=== PATIENT | female | born 1965 | race Caucasian/White ===

== ENCOUNTER 2016-08-24 07:25 | Day surgery (SDC) | payer OTHER ==
[2016-08-24] MEDS ORDERED: LIDOCAINE 2% MDV (20MG/ML) 20ML VIAL IV ONE (14:00)
[2016-08-24] MEDS ORDERED: PROPOFOL 10 MG/ML VIAL IV ONE (14:00)
[2016-08-24] MEDS ORDERED: MIDAZOLAM HCL 2MG/2ML VIAL IV ONE (14:00)
--- NOTE | 2016-08-29 17:30 | Operative Note ---
DATE OF SURGERY: 08/24/2016 OPERATION: Screening COLONOSCOPY. PREOPERATIVE DIAGNOSIS: High risk, family history of colon polyps in first- degree relative. POSTOPERATIVE DIAGNOSIS: Normal exam. PREPARATION QUALITY: Good. ESTIMATED BLOOD LOSS: None. SPECIMENS: None. COMPLICATIONS: None apparent. PROCEDURE: After informed consent was obtained from the patient, she was placed in the left lateral decubitus position in the endoscopy suite, sedated and monitored by the department of anesthesia. Once sedated, a digital rectal exam was performed which was unremarkable. A well-lubricated [id number] colonoscope was inserted into the rectum and advanced to the cecum. Preparation quality was good. The ileocecal valve, appendiceal orifice, ascending colon, transverse colon, descending colon, sigmoid colon, and rectum were unremarkable. No polyps , mass lesions, or diverticula were seen. Forward and J-turn views of the rectum and anorectum were unremarkable. The endoscope was straightened, the rectal ampulla deflated, and the endoscope was removed. RECOMMENDATIONS: I would suggest the patient resume her medications and diet. I would recommend a repeat exam in 5 years based on her family history. As always, thank you for allowing me to participate in the healthcare of your patients. CC: Dr. Tony LALA
== END 2016-08-24 09:23 | disposition home or self-care (01) ==
LOC: HOP 07:25
PROVIDERS: ATTEND Internal Medicine Gastroenterology
DX: Z12.11 Encounter for screening for malignant neoplasm of colon (principal); Z83.71 Family history of colonic polyps; E11.9 Type 2 diabetes mellitus without complications; Z79.84 Long term (current) use of oral hypoglycemic drugs
CPT/HCPCS: 00810; G0105; 81025

== ENCOUNTER 2017-10-12 09:00 | Inpatient (IN) | payer OTHER ==
[2017-10-23] MEDS ORDERED: METOCLOPRAMIDE 10 MG TABLET PO ONE (06:00)
[2017-10-23] MEDS ORDERED: FAMOTIDINE 20MG TABLET PO ONE (06:00)
[2017-10-23] MEDS ORDERED: MECLIZINE 25 MG TABLET PO ONE (06:00)
[2017-10-23] MEDS ORDERED: CEFAZOLIN 2 Gram 2 GM/50 ML BAG IVPB ONE (06:00)
[2017-10-23] MEDS ORDERED: ACETAMINOPHEN 1,000 MG/100 ML BTL IV ONE (06:00)
[2017-10-23] MEDS ORDERED: DIPHENHYDRAMINE HCL 25 MG CAPSULE PO PRN (12:15)
[2017-10-23] MEDS ORDERED: ONDANSETRON HCL IV 4 MG/2 ML VIAL IVP PRN (12:15)
[2017-10-23] MEDS ORDERED: MAGNESIUM HYDROXIDE 30 ML UDC PO PRN (12:15)
[2017-10-23] MEDS ORDERED: TRAMADOL HCL 50 MG TABLET PO PRN ×2 (12:15)
[2017-10-23] MEDS ORDERED: OXYCODONE HCL 5 MG TABLET PO PRN (12:15)
[2017-10-23] MEDS ORDERED: METOCLOPRAMIDE HCL 10 MG/2 ML VIAL IVP PRN (12:15)
[2017-10-23] MEDS ORDERED: NALOXONE 0.4 MG/1 ML VIAL IVP PRN (12:15)
[2017-10-23] MEDS ORDERED: SENNOSIDES/DOCUSATE SODIUM UD CAPSULE PO PRN (12:15)
[2017-10-23] MEDS ORDERED: AL HYDROX/MAG HYDROX 30ML UD PO PRN (12:15)
[2017-10-23] MEDS ORDERED: ZOLPIDEM TARTRATE 5 MG TABLET PO PRN (12:15)
[2017-10-23] MEDS: RINGERS SOLUTION,LACTATED 1,000 ML IV SCH (12:48)
[2017-10-23] MEDS: HYDROMORPHONE HCL 2 MG/ML VIAL IV PRN ×2 (13:18→13:39)
[2017-10-23] MEDS ORDERED: PROPOFOL 10 MG/ML VIAL IV ONE (14:00)
[2017-10-23] MEDS ORDERED: MIDAZOLAM HCL 2MG/2ML VIAL IV ONE (14:00)
[2017-10-23] MEDS ORDERED: *PACU ONLY* KETAMINE HCL 10 MG/ML (20ML) VIAL IV ONE (14:00)
[2017-10-23] MEDS ORDERED: TRANEXAMIC ACID 1,000 MG in 0.9 % SODIUM CHLORIDE 100ML 100 ML IVPB ONE (15:00)
--- NOTE | 2017-10-23 15:50 | Rehab Evaluation ---
Patient Information - Patient Information Diagnosis: L knee OA Ordered Treatment: PT Evaluate and Treat Status: Initial Evaluation Surgery: Yes (L TKA) Date of Surgery: 10/23/17 History: Detail Past Medical/Surgical Hx: PAST MEDICAL/SURGICAL HISTORY Past Surgical History CSECTION X3 CHOLECYSTECTOMY TONSILLECTOMY PMH - Respiratory Hx Respiratory Disorders Yes Comment: small "bronchial tube" left lung PMH - Cardiovascular Hx Cardiovascular Disorders Yes Exercise Tolerance Good PMH - Neuro Hx Neurological Disorders No PMH - GI Hx Gastrointestinal Disorders No PMH - Hx Genitourinary Disorders No Hx Age of Menopause 49 Comment: MENOPAUSE STARTED IN MARCH PMH - Endocrine Hx Endocrine Disorders Yes Hx Diabetes Yes Hx of NIDDM Yes Comment: A1C 7.3 recently went back on Victoza blood sugars 160 range PMH - Musculoskeletal Hx Musculoskeletal Disorders Yes Hx Arthritis Yes: KNEES PMH - Psych Hx Psychiatric Problems No PMH - Hematology/Oncology Hx Hematology/Oncology No Disorders Premorbid Status: Detail (The patient was independent with all mobility prior to surgery.) Social History: Detail (The patient lives with spouse in a 2 story home with 13 steps to her bedroom. The patient's house has 3 steps at the enterance with hand rail on the right side. The patient's bathroom is equipped with walk in shower with a seat and a standard toilet with a riser seat.) Precautions: [place], Fall, Other (WBAT on the L LE) - Time With Patient Total Time Spent With Patient (Min): 30 Treatment Procedures: Detail (Initial Eval, gait training.) Subjective Information - Subjective Information Per Patient (The patient had minimal complaints of pain. The patient was light headed when ambulating to bathroom.) Objective Data - Mental Status Patient Orientation: Oriented x3 - Visual Perception Appears within normal limits for therapeutic activities - ROM Not within normal limits (The patient's L knee AROM was limited s/p surgery. All other LE AROM was WNL.) - Strength/Tone Not within normal limits (The patient's L LE strength was not tested secondary to s/p however it was functional. The patient was able to complete SLR. R LE strength was4+to 5/5.) - Bed Mobility Independent (The patient was independent with supine to and from sit.) - Transfers Independent (Independent sit to stand .) - Balance Balance Sitting: Good Balance Standing: Good - Sensation Intact - Gait Detail (The patient ambulated to and from bathroom WBAT on the L LE with supervision of 2 for safety ( a distance of 13 feet x 2) . When approaching the toilet the patient c/o lightheadedness. The patient turned to sit on toilet and listed to the left with brief loss of consciousness ( responded to name in 1- 2 seconds) Patient was supported by nursing staff and PT. After sitting on toilet for a a few minutes the patient was able to ambulate back to her bed. Nursing staff was present throughout incident.) Therapy Assessment - Therapy Assessment Detail (The patient did well with bed mobility , transfers and ambulation with a brief incident of fainting while on toilet. Feel the patient will progress well.) Problem List - Problem List Physical Therapy Problem List: Detail (1) Decreased L knee AROM and L LE strength 2) Nonambulatory on stairs) Goals - Goals Physical Therapy Goals: 1) Independent with HEP of TKA exercises. 2) The patient will ambulate independently with assistive divice WBAT on the L LE household distances and on a flight of stairs using proper technique with supervision for safety Prognosis - Prognosis Good Plan - Plan Physical Therapy Plan: PT 1 to 2 times until all inpatient PT goals have been met for gait training on levles and stairs and instruction in HEP.
[2017-10-23] MEDS ORDERED: FONDAPARINUX 2.5 MG/0.5 ML SYR SQ SCH (16:00)
[2017-10-23] MEDS: ACETAMINOPHEN 1,000 MG/100 ML BTL IV SCH ×2 (16:01→21:17)
[2017-10-23] MEDS ORDERED: BUPIVACAINE 0.25% W/EPI MPF 30ML VIAL IVP ONE (16:05)
[2017-10-23] MEDS ORDERED: BUPIVACAINE LIPOSOME 266MG/20ML VIAL IV ONE (16:05)
[2017-10-23] MEDS ORDERED: TRANEXAMIC ACID 1,000 MG/10 ML ML IV ONE (16:05)
[2017-10-23] MEDS: CEFAZOLIN 1G VIAL IVP SCH (17:02)
[2017-10-23] MEDS ORDERED: CEFAZOLIN 2 Gram 2 GM/50 ML BAG IVPB SCH (17:30)
[2017-10-23] MEDS: OXYCODONE HCL 5 MG TABLET PO PRN (17:54)
[2017-10-23] MEDS: ASPIRIN 325 MG TAB ENTERIC-COATED PO SCH (21:17)
[2017-10-24] MEDS: OXYCODONE HCL 5 MG TABLET PO PRN ×3 (00:37→09:22)
[2017-10-24] MEDS: CEFAZOLIN 1G VIAL IVP SCH ×2 (00:38→08:34)
[2017-10-24] MEDS: ACETAMINOPHEN 1,000 MG/100 ML BTL IV SCH (03:31)
[2017-10-24] MEDS: RINGERS SOLUTION,LACTATED 1,000 ML IV SCH (04:24)
[2017-10-24 06:30] LABS: HEMATOCRIT 37.2 % (35.0-47.0); HEMOGLOBIN 12.4 gm/dl (11.6-16.0); MEAN CELL VOLUME 91.9 fl (81-97); MEAN CORPUSCULAR HEMOGLOBIN 30.6 pg (27-33); MEAN CORPUSCULAR HGB CONC 33.3 g/dl (32-36); MEAN PLATELET VOLUME 11.2 fl (7.4-10.4); PLATELET COUNT 198 K/uL (130-400); RED BLOOD COUNT 4.05 M/uL (3.80-5.40); RED CELL DISTRIBUTION WIDTH 12.4 % (11.5-14.5); WHITE BLOOD COUNT W/O DIFF 10.5 K/uL (4.2-12.2)
[2017-10-24 06:39] LABS: PROTHROMBIN TIME (PATIENT) 10.5 SECONDS (9.5-12.1)
[2017-10-24] MEDS ORDERED: METFORMIN 500 MG TABLET PO SCH (08:00)
[2017-10-24] MEDS: ASPIRIN 325 MG TAB ENTERIC-COATED PO SCH (09:01)
[2017-10-24] MEDS ORDERED: LISINOPRIL 5 MG TABLET PO SCH (10:00)
[2017-10-24] MEDS ORDERED: VICTOZA SC SCH (10:00)
[2017-10-24] MEDS ORDERED: [UNRECOGNIZED DRUG - OTHER] PO SCH (10:00)
--- NOTE | 2017-10-24 11:32 | Physical Therapy Tx Note ---
Physical Therapy Tx Note - Treatment Note Tolerated: Good (Patient is doing very well, sitting up in chair this am and ready to walk and perform stairs at this time. Had a good night and nursing able to keep the pain controlled well so she could rest comfortably.) Total Time Spent With Patient: 30 Physical Therapy Tx Note: Detail (Patient sitting up in chair when entered room , nursing had been able to remove IV and drain so patient ready for PT. Sat to do exercises with good tolerance even with knee bending. Sit to stand with proper technique of chair arm and walker, ambulated into anderson and to stairs with present to see how she does; used standard walker and WBAT, CGA only. Ambulated down three steps without rest after walking 30 feet with proper technique then pivoted around to ambulate back up three steps using rail and folded walker for support, CGA and verbal cues. Ambulated back to room with SBA about 30 feet, WBAT with standard walker and patient wanted to get into bed for a time to rest so assisted slightly with LES into bed, patient up in bed independently. Re-attached cryocuff to knee but did not have compressive pads for legs. Left tray table close and call light close. still present to assist.) Physical Therapy Problem List: Detail (1) Decreased L knee AROM and L LE strength 2) Nonambulatory on stairs) Physical Therapy Goals: 1) Independent with HEP of TKA exercises. 2) The patient will ambulate independently with assistive divice WBAT on the L LE household distances and on a flight of stairs using proper technique with supervision for safety Prognosis: Good (Patient doing very well with pain controlled and mobility improving. Has passed skills to be discharged home this afternoon without seeing PT again but will check at scheduled time to see if patient still here and needs anything.) Physical Therapy Plan: PT 1 to 2 times until all inpatient PT goals have been met for gait training on levles and stairs and instruction in HEP.
[2017-10-24] MEDS ORDERED: ACETAMINOPHEN 325 MG TAB PO PRN (12:15)
[2017-10-24] MEDS ORDERED: OXYCODONE HCL/APAP 5MG/325MG TABLET PO PRN ×2 (12:15)
--- NOTE | 2017-10-24 13:00 | Operative Note ---
DATE OF SURGERY: 10/23/2017 Surgeon: Gatito Lockett DO PREOPERATIVE DIAGNOSIS: Primary osteoarthritis of the left knee. POSTOPERATIVE DIAGNOSIS: Primary osteoarthritis of the left knee. OPERATION: Left total knee arthroplasty. PROCEDURE: This 51-year-old female was taken to the operating room and placed in the supine position on the operating room table. Spinal anesthesia was induced. The left lower extremity was elevated. It was prepped with Hibiclens and draped in the usual sterile fashion. It was exsanguinated and the tourniquet inflated to 300 mmHg. All scrub personnel wore personal isolation suits. An anterior longitudinal midline incision was made followed by a medial parapatellar arthrotomy incision. An intracondylar drill hole was made for the intramedullary alignment unique for the femur, and a 5-degree valgus 9 mm cut was made in the distal femur. Sizing jig was affixed and a size 65 was seen to be the appropriate size in the medial-lateral direction but too narrow in the anterior-posterior dimension. Therefore, we moved the pin holes 2 mm anteriorly. The size 65 four-in-one cutting block was then pinned in 3 degrees of external rotation. Then the appropriate cuts were made and the wafer of bone was removed. The tibia was then addressed. We used an extramedullary alignment guide to cut the proximal tibia referencing a 10 mm cut off the lateral tibial plateau. Once the cutting block was placed in the appropriate position, it was pinned and a 3-degree posterior slope cut was made. We then removed osteophytes from the posterior aspect of the knee as well as remnants of the menisci. The tibia was sized to a size 75. The stem punch was used. The tissue tensioning device was used to check the flexion/extension balance, which was seen to be satisfactory. The wound was copiously irrigated with pulse lavage, lactated Ringer's solution. Trial components were inserted. A size 65 femur, 75 tibia and we started with a 10 mm bearing and worked up to a 12 mm bearing, as we had to cut an additional 2 mm off the proximal tibia. This gave us excellent stability, and the patella was cut and restored to anatomic height with a 37 x 10 mm patella. All trial components were then removed and the wound again copiously irrigated with lactated Ringer's solution. Exparel was injected into the posterior, medial, and lateral corners of the joint and at the completion of the procedure, the remainder was injected into the periosteum and joint capsule of the proximal tibia and distal femur. The was irrigated with lactated Ringer's solution. All the bony surfaces were dried. All components were cemented and excess cement removed after the insertion of each component. Initially a size 75 tibial baseplate was cemented followed by the insertion of the 12 mm tibial bearing and the femoral component and finally the patella was inserted. Once the cement had hardened, the knee was again taken through range of motion with excellent stability. Varus/valgus and flexion was seen. A drain was placed through a separate stab incision, and the arthrotomy incision was closed with a #2 Vicryl. The subcutaneous tissue was closed with 0 Vicryl and the skin was stapled. Sterile dressings were applied and a Polar Care applied. The patient was taken to the recovery room in satisfactory condition. GROSS PATHOLOGY: This patient demonstrated severe patellofemoral and medial compartment osteoarthritis with more minor degenerative changes present in the lateral compartment. Final components inserted were a [employer] size 65 cruciate retaining femur, a size 75 tibial baseplate, a 12 mm anterior stabilized D1 bearing, and a 37 x 10 mm patella was used. CC: DO SPIKE Cerda
--- NOTE | 2017-10-24 15:29 | Rehab Evaluation ---
Patient Information - Patient Information Diagnosis: L knee OA Ordered Treatment: OT Evaluate and Treat Status: Initial Evaluation Surgery: Yes (L TKA) Date of Surgery: 10/23/17 History: Detail Past Medical/Surgical Hx: PAST MEDICAL/SURGICAL HISTORY Past Surgical History CSECTION X3 CHOLECYSTECTOMY TONSILLECTOMY PMH - Respiratory Hx Respiratory Disorders Yes Comment: small "bronchial tube" left lung PMH - Cardiovascular Hx Cardiovascular Disorders Yes Exercise Tolerance Good PMH - Neuro Hx Neurological Disorders No PMH - GI Hx Gastrointestinal Disorders No PMH - Hx Genitourinary Disorders No Hx Age of Menopause 49 Comment: MENOPAUSE STARTED IN MARCH PMH - Endocrine Hx Endocrine Disorders Yes Hx Diabetes Yes Hx of NIDDM Yes Comment: A1C 7.3 recently went back on Victoza blood sugars 160 range PMH - Musculoskeletal Hx Musculoskeletal Disorders Yes Hx Arthritis Yes: KNEES PMH - Psych Hx Psychiatric Problems No PMH - Hematology/Oncology Hx Hematology/Oncology No Disorders Premorbid Status: Detail (The patient was independent with all mobility and I/ ADL's (self-care, driving, yardwork, etc.) prior to surgery.) Social History: Detail (The patient lives with spouse in a 2 story home with 13 steps to her bedroom. The patient's house has 3 steps at the enterance with hand rail on the right side. The patient's bathroom is equipped with walk in shower with a seat and a standard toilet with a riser seat. Pt. plans to stay on the main floor during initial recovery. There is a bathroom on the main floor but pt. plans to take sponge baths until able to manage stairs. will be available to assist as needed, and is handy in adapting/installing environmental changes as needed. Is employed through [employer] and eager to return to work.) Precautions: [place], Fall, Other (WBAT on the L LE) - Time With Patient Total Time Spent With Patient (Min): 20 Treatment Procedures: Detail (OT [place]. Session was concluded with spouse present, pt. supine in bed with call light and bedside tray within reach.) Subjective Information - Subjective Information Per Patient (R hand dominant.) Objective Data - Pain Pain Present: Yes - Mental Status Patient Orientation: Oriented x3 - Visual Perception Appears within normal limits for therapeutic activities - ROM Within normal limits (BUE WNL) - Strength/Tone Within normal limits (BUE WNL MMT 5/5) - Coordination Appears within normal limits for therapeutic activities - Bed Mobility Independent (Pt. required 's assistance to lift leg in/out of bed d/t high pain level at this time. Pt. stated she can do it by herself if needed. Pt. stated she was educ. by PT and understands use of a leg bead preparer (and has one ) and compensatory strategies, but prefers to help.) - Transfers Independent (sit<>stand EOB to walker) - Balance Balance Sitting: Good Balance Standing: Fair - Sensation Intact (BUE fingertips light touch intact) - ADL's/IADL's Detail (Pt. was already dressed upon OT's arrival, and stated she dressed Ind. ( slip on dress). Plans to wear slip-on dress & shoes during recovery. Educ. was provided in adaptive dressing techniques and use of AE if needed for LB dressing , but pt. stated she prefers help from family if needed. Pt. declined to demo. d /t high pain level at this time.) Therapy Assessment - Therapy Assessment Detail (In-pt. OT services not recommended at this time. Pt. has a good environmental set-up and assistance from family if needed. Pt. verbalized understanding of educ. provided, but prefers help from family.) Patient Education - Patient Education Teaching Topic: Equipment Use, Exercise/Activity Response: Verbalize Understanding Teaching Method: Discussion Teaching Recipient: Patient, Significant Other () Barriers To Learning: None Problem List - Problem List Physical Therapy Problem List: Detail (1) Decreased L knee AROM and L LE strength 2) Nonambulatory on stairs) Goals - Goals Physical Therapy Goals: 1) Independent with HEP of TKA exercises. 2) The patient will ambulate independently with assistive divice WBAT on the L LE household distances and on a flight of stairs using proper technique with supervision for safety Prognosis - Prognosis Good Plan - Plan Physical Therapy Plan: PT 1 to 2 times until all inpatient PT goals have been met for gait training on levles and stairs and instruction in HEP. Occupational Therapy Plan: D/C from in-pt. OT services. Educ. was provided to call rehab dept. if questions arise after returning home.
--- NOTE | 2017-10-25 14:31 | Discharge Summary ---
DATE OF ADMISSION: 10/23/2017 DATE OF DISCHARGE: 10/24/2017 ADMITTING DIAGNOSIS: Osteoarthritis of the left knee. DISCHARGE DIAGNOSIS: Osteoarthritis of the left knee. OPERATIVE PROCEDURE: Elective left total knee arthroplasty. DESCRIPTION: This 51-year-old female was admitted to the hospital for elective total knee arthroplasty and tolerated the operative procedure well. She progressed satisfactorily with the physical therapy and seemed to show excellent improvement. She will be discharged today and will follow up in the office in 2 weeks for staple removal. She will wear her IW[place] hose during the day and remove them at night. She will have outpatient physical therapy. She is to take aspirin 325 mg b.i.d. for 2 weeks. She was given a prescription for Percocet 5/325 mg, #60, 1 every 4 hours as necessary for pain. Routine wound instructions were given. Should she have any problems prior to being seen, she was instructed to call my office. SPIKE
== END 2017-10-24 15:00 | disposition home or self-care (01) | DRG 470 ==
LOC: MEDSURG 10-23 08:44
PROVIDERS: ADMIT Orthopaedic Surgery; ATTEND Orthopaedic Surgery
PROC: 0SRD069 Replacement of Left Knee Joint with Oxidized Zirconium on Polyethylene Synthetic Substitute, Cemented, Open Approach (ICD-10-PCS; principal; 2017-10-23 11:00)
DX: M17.12 Unilateral primary osteoarthritis, left knee (principal); E11.9 Type 2 diabetes mellitus without complications; Z79.4 Long term (current) use of insulin
CPT/HCPCS: 36416; 82948; 85025; 85610; 94760; 97110; J0690